=== PATIENT | male | born 1935 | race Caucasian/White ===

== ENCOUNTER → 2022-12-14 13:27 | Outpatient (CLI) | payer MEDICARE, OTHER, SELFPAY ==
--- NOTE | 2022-12-14 14:01 | CT_ITS ---
FINAL REPORT TECHNIQUE: Postcontrast axial images through the abdomen and pelvis were performed. This study was performed with techniques to keep radiation doses as low as reasonably achievable, (ALARA). Individualized dose reduction techniques using automated exposure control or adjustment of mA and/or kV according to the patient's size were employed. CLINICAL HISTORY: CONSTIPATION,UPPER ABD PAIN,DYSURIA FINDINGS: Abdomen: There is mild scarring in the lung bases. The liver is normal in size and attenuation. The spleen is unremarkable. The adrenals are normal. Bilateral renal cysts are identified. There is mild bilateral hydronephrosis. There is a less than 3 mm nonobstructing stone in the lower pole of the left kidney. Stranding is seen adjacent to the pancreatic head of uncertain significance but worrisome for focal acute pancreatitis. The aorta is normal in caliber. No free fluid or adenopathy is identified. No findings for mechanical bowel obstruction are identified. There are small bilateral inguinal hernias containing fat. Pelvis: The appendix is not identified. There is mild bladder wall thickening, likely inflammatory. No free fluid, free air, abscess or adenopathy is identified. IMPRESSION: Stranding adjacent to the pancreatic head of uncertain significance but worrisome for focal acute pancreatitis. Mild bilateral hydronephrosis without ureteral stone. Nonobstructing left renal stone. Reviewed, Interpreted and Dictated by Isrrael Meyer III, MD Transcribed by Kylah Castellon Authenticated and [facility]
[2022-12-14 14:19] LABS: Blood Urea Nitrogen 15 mg/dl (9-20); Estimated Glomerular Filt Rate 63 ml/min (>60); GFR (African American) 77 ML/MIN (>60)
== END ==
PROVIDERS: PCP Family Medicine; Visit Provider Nurse Practitioner Family
DX: R10.10 Upper abdominal pain, unspecified (principal); R30.0 Dysuria; K59.00 Constipation, unspecified
CPT/HCPCS: 36415; 74177; 82565; 84520; Q9967

== ENCOUNTER 2024-07-05 17:29 | Emergency (ER) | payer MEDICARE, OTHER, SELFPAY ==
[2024-07-05] VITALS (9 sets, daily range): BP systolic 147–188; BP diastolic 79–110; PULSE 86–119; RESP 16–20; TEMP 36.7; O2SAT 95–99; BMI 27.3
--- NOTE | 2024-07-05 17:33 | PC.NURSE ---
Glucose 120 at 1730
--- NOTE | 2024-07-05 17:34 | ECG_ITS ---
APPROVED REPORT Exam: Resting ECG HR:96 bpm ECG Measurements Heart Rate 96 AXES OH 192 P 58 QRSd 84 QRS -26 QT 328 T 52 QTc 382 Conclusion SINUS RHYTHM BORDERLINE LEFT AXIS DEVIATION [QRS AXIS < -20] MODERATE VOLTAGE CRITERIA FOR LVH, CONSIDER NORMAL VARIANT [MEETS CRITERIA IN ONE OF: R(aVL), S(V1), R(V5), R(V5/V6)+S(V1)] BORDERLINE ECG UNCONFIRMED REPORT Electronically signed by : JEFERSON CLARK, 07/06/2024 06:49:46
--- NOTE | 2024-07-05 17:59 | CT_ITS ---
PROCEDURE INFORMATION: Exam: CTA Head With Contrast, Arteriography Exam date and time: 07/05/2024 6:25 PM Age: 88 years old Clinical indication: Other: Confusion; Additional info: Confustion TECHNIQUE: Imaging protocol: Computed tomographic angiography of the head with contrast. Exam focused on the arteries. 3D rendering (Not supervised by radiologist): MIP and/or 3D reconstructed images were created by the technologist. Radiation optimization: All CT scans at this facility use at least one of these dose optimization techniques: automated exposure control; mA and/or kV adjustment per patient size (includes targeted exams where dose is matched to clinical indication); or iterative reconstruction. Contrast material: ISOVUE; Contrast volume: 80 ml; Contrast route: INTRAVENOUS (IV); COMPARISON: CT ANGIO HEAD 07/05/2024 6:25 PM FINDINGS: ANTERIOR CIRCULATION: Right internal carotid artery: Intracranial segment is patent with no significant stenosis. No aneurysm. Right middle cerebral artery: No occlusion or significant stenosis. No aneurysm. Right anterior cerebral artery: No occlusion or significant stenosis. No aneurysm. Left internal carotid artery: Intracranial segment is patent with no significant stenosis. No aneurysm. Left middle cerebral artery: No occlusion or significant stenosis. No aneurysm. Left anterior cerebral artery: No occlusion or significant stenosis. No aneurysm. POSTERIOR CIRCULATION: Right vertebral artery: No occlusion or significant stenosis. No aneurysm. Left vertebral artery: No occlusion or significant stenosis. No aneurysm. Basilar artery: No occlusion or significant stenosis. No aneurysm. Right posterior cerebral artery: No occlusion or significant stenosis. No aneurysm. Left posterior cerebral artery: No occlusion or significant stenosis. No aneurysm. Brain: No definite mass, mass effect, or midline shift. Cerebral ventricles: No ventriculomegaly. Bones/joints: Unremarkable. No acute fracture. Soft tissues: Unremarkable. IMPRESSION: No large vessel stenosis or occlusion.
--- NOTE | 2024-07-05 17:59 | CT_ITS ---
PROCEDURE INFORMATION: Exam: CTA Neck With Contrast Exam date and time: 07/05/2024 6:25 PM Age: 88 years old Clinical indication: Other: Confusion; Additional info: Confustion TECHNIQUE: Imaging protocol: Computed tomographic angiography of the neck with contrast. Exam focused on the cervical segments of the vasculature. 3D rendering (Not supervised by radiologist): MIP and/or 3D reconstructed images were created by the technologist. Radiation optimization: All CT scans at this facility use at least one of these dose optimization techniques: automated exposure control; mA and/or kV adjustment per patient size (includes targeted exams where dose is matched to clinical indication); or iterative reconstruction. Contrast material: ISOVUE; Contrast volume: 80 ml; Contrast route: INTRAVENOUS (IV); COMPARISON: CT ANGIO HEAD 07/05/2024 6:25 PM FINDINGS: Right common carotid artery: No stenosis. No dissection or occlusion. Right internal carotid artery: No stenosis of the extracranial segment. No dissection or occlusion. Right external carotid artery: No occlusion or stenosis of the origin. Left common carotid artery: No stenosis. No dissection or occlusion. Left internal carotid artery: No stenosis of the extracranial segment. No dissection or occlusion. Left external carotid artery: No occlusion or stenosis of the origin. Right vertebral artery: No stenosis. No dissection or occlusion. Left vertebral artery: No stenosis. No dissection or occlusion. Paranasal sinuses: Opacification of the right maxillary sinus. Thyroid: 2.6 cm right lobe dominant thyroid nodule. Thyroid sonogram with possible biopsy recommended. Soft tissues: Normal. No significant soft tissue swelling. Bones/joints: No acute fracture. IMPRESSION: 1. 2.6 cm right lobe dominant thyroid nodule. Thyroid sonogram with possible biopsy recommended. 2. Opacification of the right maxillary sinus. 3. No acute large vessel occlusion identified. COMMENTS: Consistent with the [employer]'s Incidental Findings Committee white paper (J Am Estella Radiol 2015): In patients aged 35 years and older with an incidental thyroid nodule equal to or greater than 1.[address], MRI or extrathyroidal US, further evaluation with dedicated thyroid US is recommended for patients with normal life expectancy and without comorbidities. For smaller nodules without suspicious features, no further evaluation or follow up is recommended. REFERENCES: NASCET CRITERIA. The degree of stenosis in the cervical segment of the internal carotid artery is based on NASCET criteria. Normal is no stenosis. Mild is less than 50% stenosis. Moderate is 50-69% stenosis. Severe is 70% to 99% stenosis. Total occlusion is no detectable patent lumen.
--- NOTE | 2024-07-05 18:00 | XR_ITS ---
PROCEDURE INFORMATION: Exam: XR Chest Exam date and time: 07/05/2024 6:30 PM Age: 88 years old Clinical indication: Shortness of breath; Additional info: SOA TECHNIQUE: Imaging protocol: Radiologic exam of the chest. Views: 1 view. COMPARISON: CT ANGIO NECK 07/05/2024 6:25 PM FINDINGS: Lungs: Unremarkable. No consolidation. Pleural spaces: Unremarkable. No pleural effusion. No pneumothorax. Heart/Mediastinum: Unremarkable. No cardiomegaly. Bones/joints: Unremarkable. IMPRESSION: No acute findings.
[2024-07-05] MEDS: ONDANSETRON 4MG/2ML VIAL 4 MG IV (18:06)
--- NOTE | 2024-07-05 18:10 | CT_ITS ---
PROCEDURE INFORMATION: Exam: CT Head Without Contrast Exam date and time: 07/05/2024 6:22 PM Age: 88 years old Clinical indication: Other: Confusion TECHNIQUE: Imaging protocol: Computed tomography of the head without contrast. Radiation optimization: All CT scans at this facility use at least one of these dose optimization techniques: automated exposure control; mA and/or kV adjustment per patient size (includes targeted exams where dose is matched to clinical indication); or iterative reconstruction. COMPARISON: No relevant prior studies available. FINDINGS: Brain: Periventricular and subcortical small vessel ischemic changes appear chronic. Mild atrophy associated. No acute hemorrhage, mass effect, midline shift, or extra-axial fluid collection. Cerebral ventricles: No ventriculomegaly. Paranasal sinuses: Right maxillary sinus opacification. Mastoid air cells: Visualized mastoid air cells are well aerated. Bones: Unremarkable. No acute fracture. Soft tissues: Unremarkable. IMPRESSION: 1. No acute intracranial abnormality identified. 2. Chronic right maxillary sinusitis.
--- NOTE | 2024-07-05 18:16 | HMH.EDGENADL ---
Discharge Plan Disposition Patient Disposition: Xfer Short-Term Hosp Referrals Follow up/Referrals: Provider,Referral, [Referring] - See instructions Clinical Impressions Clinical Impression: Acute alteration in mental status Stand Alone Forms Stand Alone Forms: Transfer Record - ED Print Language Print Language: Swedish Discharge ED Provider: Dav Caraballo General Adult HPI <Dav Caraballo MD - Last Filed: 07/05/24 23:30> General Chief complaint: Neuro Symptoms/Deficit Stated complaint: CVA Symptoms Time Seen by Provider: 07/05/24 17:32 Mode of Arrival: Ambulatory Source of Information: Patient Limitations: No Limitations Description of Symptoms (Recalled from ER Triage Doc. by RN): pt presents to ED with c/o confusion. family states that pt was working on getting the generator running, they left the generator running to charge battery. pt forgot that this was going on. family concerned for stroke due to confusion. History of Present Illness HPI narrative: Patient is a 88-year-old past medical history of hypertension, BPH, presenting for confusion. Last known normal per family was around 2 PM today prior to him going outside and working on the generator. According to family he went into the bathroom and felt like he blacked out . They did not hear him at the floor and he is not complaining of pain anywhere. Patient said that he has not been remembering things since this occurred. He has had no sensation or motor issues and still able to walk with a strong steady gait. They were concerned for a stroke and brought him here. He is unsure if he took his blood pressure medications this morning and has had no fevers, chills, chest pain, shortness of breath, abdominal pain nausea or vomiting. According to family this is never happened before. Related Data Allergies Allergy/AdvReac Type Severity Reaction Status Date / Time Sulfa (Sulfonamide Allergy Unknown Verified 07/05/24 18:06 Antibiotics) (SULFA (SULFONAMIDE ANTIBIOTICS)) PFSH <Dav Caraballo MD - Last Filed: 07/05/24 23:30> FORMERLY [facility] Disclaimer: The information contained in this section may have been updated after the patient was seen, as this information can be updated by other users. Social History (Updated 07/05/24 @ 21:05 by Stephen Gilman ([facility]), PHARMACIST HELPER) Smoking Status: Never smoker alcohol intake: never current occupational status: retired Travel in the last 8 weeks: None Have you lived/traveled outside [place] in past 30 days?: No Contact w/someone who lives/traveled outside US past 30 days?: No Exposure to someone with infectious disease in past 14 days?: No Do you have a fever (greater than 100.4 F or 38 C)?: No Have you tested positive for COVID-19: No Exposed to someone with COVID-19 in past 14 days?: No Do you have a sore throat?: No Do you have a cough?: No Do you have any weakness?: No Do you have any diarrhea?: No Are you experiencing any unusual bleeding?: No Do you have any muscle aches/pain?: No Do you have any abdominal pain?: No Are you experiencing loss of taste or smell?: No <Dav Caraballo MD - Last Filed: 07/05/24 23:30> ROS Obtained: Yes All systems reviewed & no additional complaints except as documented <Stephen Gilman ([facility]), PHARMACIST HELPER - Last Filed: 07/05/24 21:05> ROS Obtained: Yes Systems reviewed as appropriate & no additional complaints except as documented Physical Exam <Dav Caraballo MD - Last Filed: 07/05/24 23:30> General General appearance: alert and in no apparent distress Eye Eye exam: Present normal appearance ENT ENT exam: Present normal exam Chest Chest inspection: Present symmetric chest wall rise Respiratory Respiratory exam: Present normal lung sounds bilaterally; Absent respiratory distress Cardiovascular Cardiovascular exam: Present regular rate Abdominal Exam Abdominal exam: Present soft; Absent tenderness, guarding or rebound Extremities Exam Extremities exam: Present full ROM; Absent tenderness Neurological Exam Neurological exam: Present alert, CN II-XII intact, normal gait and other (Finger-nose and [id number] normal, able to name objects such as glove and pen, no aphasia, cranial nerves intact, 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 [place]omo Inquiry Pt receiving controlled substance: No Vital Signs: 07/05/24 17:30 07/05/24 18:00 07/05/24 18:45 Temperature 98.1 F Temperature Source Oral Pulse Rate 119 H 91 H Pulse Rate [Left Radial] 95 H Respiratory Rate 16 Blood Pressure 179/107 H 158/85 H Blood Pressure [Right Arm] 188/110 H Blood Pressure Mean Blood Pressure Mean [Right Arm] 136 02 Sat by Pulse Oximetry 96 98 95 Oxygen Delivery Method Room Air Room Air 07/05/24 19:01 07/05/24 19:30 07/05/24 20:00 Temperature Temperature Source Pulse Rate 94 H 86 92 H Pulse Rate [Left Radial] Respiratory Rate Blood Pressure 154/96 H 147/79 H 153/81 H Blood Pressure [Right Arm] Blood Pressure Mean 118 101 96 Blood Pressure Mean [Right Arm] 02 Sat by Pulse Oximetry 96 97 96 Oxygen Delivery Method 07/05/24 21:31 07/05/24 21:59 07/05/24 22:01 Temperature 98.0 F Temperature Source Oral Pulse Rate 98 H 96 H 95 H Pulse Rate [Left Radial] Respiratory Rate 20 Blood Pressure 154/87 H 154/87 H 164/83 H Blood Pressure [Right Arm] Blood Pressure Mean 108 Blood Pressure Mean [Right Arm] 02 Sat by Pulse Oximetry 98 99 Oxygen Delivery Method Room Air Lab Data Lab Results 07/05/24 17:30: WBC 7.8, RBC 4.67, Hgb 14.4, Hct 42.9, MCV 91.9, MCH 30.8, MCHC 33.6, RDW 14.0, Plt Count 163, MPV 11.6 H, Neut % (Auto) 43.2, Lymph % (Auto) 46.6, [place] % (Auto) 7.4, Eos % (Auto) 1.8, Baso % (Auto) 0.4, Neut # (Auto) 3.4, Lymph # (Auto) 3.6, [place] # (Auto) 0.6, Eos # (Auto) 0.1, Baso # (Auto) 0.0, Sodium 141, Potassium 4.4, Chloride 106, Carbon Dioxide 28, Anion Gap 11.4, BUN 28 H, Creatinine 1.20, Estimated Creat Clear 49, Estimated GFR 57 L, Est GFR ( Amer) 69, Glucose 116 H, Lactate 0.6 L, Calcium 9.3, Magnesium 1.7, Total Bilirubin 0.5, AST 50, ALT 29, Alkaline Phosphatase 40, Troponin I < 0.01, Total Protein 7.0, Albumin 4.2, Globulin 2.8, Albumin/Globulin Ratio 1.5, HIV Ag/Ab Combo Qual Negative 07/05/24 18:53: Urine Color Yellow, Urine Appearance Clear, Urine pH 6.0, Ur Specific [place] 1.025, Urine Protein Negative, Urine Glucose (UA) Negative, Urine Ketones Negative, Urine Blood Negative, Urine Nitrate Negative, Urine Bilirubin Negative, Urine Urobilinogen 0.2, Ur Leukocyte Esterase Negative, Urine RBC None, Urine WBC Occasional, Ur Squamous Epith Cells Occasional, Urine Bacteria None 07/05/24 17:30 07/05/24 17:30 Orders (Tests/Meds): ED MEDICATIONS Discontinued Medications Generic Name Dose Route Start Last Admin Trade Name Magdalena PRN Reason Stop Dose Admin Iopamidol 80 ml 07/05/24 18:22 07/05/24 18:25 Iopamidol-370 (76%);100ml Bottle IV 07/05/24 18:23 80 ml ONCE ONE Administration Ondansetron HCl 4 mg 07/05/24 18:03 07/05/24 18:06 Ondansetron 4mg/2ml Vial IV 07/05/24 18:04 4 mg ONCE ONE Administration Sodium Chloride 50 ml 07/05/24 18:22 07/05/24 18:25 0.9 % Sodium Chloride 50 Ml Vial IV 07/05/24 18:23 50 ml ONCE ONE Administration Sodium Chloride 10 ml 07/05/24 18:22 07/05/24 18:25 Sodium Chloride 0.9% 10ml Syr (Rad Only) IV 07/05/24 18:23 10 ml ONCE ONE Administration ORDERS Category Date Time Status CT angio head Stat Cat Scan 07/05/24 17:[address] angio neck Stat Cat Scan 07/05/24 17:[address] head/brain wo con Stat Cat Scan 07/05/24 18:10 Completed XR chest portable Stat Exams 07/05/24 18:00 Completed CBC w/Auto Diff [Complete Blood Count Auto Diff] Stat Lab 07/05/24 17:30 Completed CMP [Comprehensive Metabolic Panel] Stat Lab 07/05/24 17:30 Completed HIV Combo Stat Lab 07/05/24 17:30 Completed Hep C Ab with Reflex to RNA Stat Lab 07/05/24 17:30 Received Lactic Acid Stat Lab 07/05/24 17:30 Completed Magnesium Stat Lab 07/05/24 17:30 Completed Trop I [Troponin I] Stat Lab 07/05/24 17:30 Completed UA [Urinalysis and Microscopic] Stat Lab 07/05/24 18:53 Completed Blood Culture Stat Micro 07/05/24 18:18 Received Medical Decision Narrative: In summary, this 88-year-old male presents to the emergency department today with confusion. On initial evaluation patient is hemodynamically stable alert and in no acute distress. Patient has a NIH of 1 for inability to name month but is otherwise intact. Patient is hypertensive to the 200s and it is unclear if he took his antihypertensives this morning. Patient has had no fevers or chills. Differential diagnosis includes but is not limited to hypertensive emergency, intracranial hemorrhage, electrolyte abnormality, infection. Based on these concerns, I ordered []. ECG personally interpreted demonstrates []. Patient received [] for treatment. Labs personally reviewed demonstrate []. XR personally interpreted demonstrates []. CT imaging personally interpreted demonstrate []. I had an interactive discussion with []. On reassessment []. Patient's prescriptions were reviewed and []. Admission as considered and []. Of note, social determinants of health include []. <Stephen Gilman ([facility]), PHARMACIST HELPER - Last Filed: 07/05/24 21:05> Vital Signs: 07/05/24 17:30 07/05/24 18:00 07/05/24 18:45 Temperature 98.1 F Temperature Source Oral Pulse Rate 119 H 91 H Pulse Rate [Left Radial] 95 H Respiratory Rate 16 Blood Pressure 179/107 H 158/85 H Blood Pressure [Right Arm] 188/110 H Blood Pressure Mean Blood Pressure Mean [Right Arm] 136 02 Sat by Pulse Oximetry 96 98 95 Oxygen Delivery Method Room Air Room Air 07/05/24 19:01 07/05/24 19:30 07/05/24 20:00 Temperature Temperature Source Pulse Rate 94 H 86 92 H Pulse Rate [Left Radial] Respiratory Rate Blood Pressure 154/96 H 147/79 H 153/81 H Blood Pressure [Right Arm] Blood Pressure Mean 118 101 96 Blood Pressure Mean [Right Arm] 02 Sat by Pulse Oximetry 96 97 96 Oxygen Delivery Method 07/05/24 21:31 07/05/24 21:59 07/05/24 22:01 Temperature 98.0 F Temperature Source Oral Pulse Rate 98 H 96 H 95 H Pulse Rate [Left Radial] Respiratory Rate 20 Blood Pressure 154/87 H 154/87 H 164/83 H Blood Pressure [Right Arm] Blood Pressure Mean 108 Blood Pressure Mean [Right Arm] 02 Sat by Pulse Oximetry 98 99 Oxygen Delivery Method Room Air Lab Data Lab Results 07/05/24 17:30: WBC 7.8, RBC 4.67, Hgb 14.4, Hct 42.9, MCV 91.9, MCH 30.8, MCHC 33.6, RDW 14.0, Plt Count 163, MPV 11.6 H, Neut % (Auto) 43.2, Lymph % (Auto) 46.6, [place] % (Auto) 7.4, Eos % (Auto) 1.8, Baso % (Auto) 0.4, Neut # (Auto) 3.4, Lymph # (Auto) 3.6, [place] # (Auto) 0.6, Eos # (Auto) 0.1, Baso # (Auto) 0.0, Sodium 141, Potassium 4.4, Chloride 106, Carbon Dioxide 28, Anion Gap 11.4, BUN 28 H, Creatinine 1.20, Estimated Creat Clear 49, Estimated GFR 57 L, Est GFR ( Amer) 69, Glucose 116 H, Lactate 0.6 L, Calcium 9.3, Magnesium 1.7, Total Bilirubin 0.5, AST 50, ALT 29, Alkaline Phosphatase 40, Troponin I < 0.01, Total Protein 7.0, Albumin 4.2, Globulin 2.8, Albumin/Globulin Ratio 1.5, HIV Ag/Ab Combo Qual Negative 07/05/24 18:53: Urine Color Yellow, Urine Appearance Clear, Urine pH 6.0, Ur Specific [place] 1.025, Urine Protein Negative, Urine Glucose (UA) Negative, Urine Ketones Negative, Urine Blood Negative, Urine Nitrate Negative, Urine Bilirubin Negative, Urine Urobilinogen 0.2, Ur Leukocyte Esterase Negative, Urine RBC None, Urine WBC Occasional, Ur Squamous Epith Cells Occasional, Urine Bacteria None Orders (Tests/Meds): ED MEDICATIONS Discontinued Medications Generic Name Dose Route Start Last Admin Trade Name Magdalena PRN Reason Stop Dose Admin Iopamidol 80 ml 07/05/24 18:22 07/05/24 18:25 Iopamidol-370 (76%);100ml Bottle IV 07/05/24 18:23 80 ml ONCE ONE Administration Ondansetron HCl 4 mg 07/05/24 18:03 07/05/24 18:06 Ondansetron 4mg/2ml Vial IV 07/05/24 18:04 4 mg ONCE ONE Administration Sodium Chloride 50 ml 07/05/24 18:22 07/05/24 18:25 0.9 % Sodium Chloride 50 Ml Vial IV 07/05/24 18:23 50 ml ONCE ONE Administration Sodium Chloride 10 ml 07/05/24 18:22 07/05/24 18:25 Sodium Chloride 0.9% 10ml Syr (Rad Only) IV 07/05/24 18:23 10 ml ONCE ONE Administration ORDERS Category Date Time Status CT angio head Stat Cat Scan 07/05/24 17:[address] angio neck Stat Cat Scan 07/05/24 17:[address] head/brain wo con Stat Cat Scan 07/05/24 18:10 Completed XR chest portable Stat Exams 07/05/24 18:00 Completed CBC w/Auto Diff [Complete Blood Count Auto Diff] Stat Lab 07/05/24 17:30 Completed CMP [Comprehensive Metabolic Panel] Stat Lab 07/05/24 17:30 Completed HIV Combo Stat Lab 07/05/24 17:30 Completed Hep C Ab with Reflex to RNA Stat Lab 07/05/24 17:30 Received Lactic Acid Stat Lab 07/05/24 17:30 Completed Magnesium Stat Lab 07/05/24 17:30 Completed Trop I [Troponin I] Stat Lab 07/05/24 17:30 Completed UA [Urinalysis and Microscopic] Stat Lab 07/05/24 18:53 Completed Blood Culture Stat Micro 07/05/24 18:18 Received Medical Decision Narrative: In summary, this 88-year-old male presents to the emergency department today with confusion. On initial evaluation patient is hemodynamically stable alert and in no acute distress. Patient has a NIH of 1 for inability to name month but is otherwise intact. Patient is hypertensive to the 200s and it is unclear if he took his antihypertensives this morning. Patient has had no fevers or chills. Differential diagnosis includes but is not limited to hypertensive emergency, intracranial hemorrhage, electrolyte abnormality, infection. Based on these concerns, I ordered labs, CT head and neck with contrast, UA. ECG personally interpreted demonstrates sinus rhythm. Patient received labs,ct for treatment. Labs personally reviewed demonstrate normal. XR personally interpreted demonstrates No acute findings. CT imaging personally interpreted demonstrate :No large vessel stenosis or occlusion. . I had an interactive discussion with Dr. Pemberton [facility] accepted patient to internal ER. On reassessment still confused with altered mental status. Admission as considered and decision was made to transfer due to inability to do an MRI on weekends. Critical Care <Stephen Gilman ([facility]), PHARMACIST HELPER - Last Filed: 07/05/24 21:05> Critical Care Time Critical Care Time: No
[2024-07-05 18:23] LABS: Basophils % 0.4 % (0.1-2.0); Eosinophils # 0.1 K/mm3 (0.0-0.4); Eosinophils % 1.8 % (0.1-12.0); Hematocrit 42.9 % (42.0-52.0); Hemoglobin 14.4 g/dL (14.1-18.0); Lymphocytes # 3.6 K/mm3 (0.7-4.5); Lymphocytes % 46.6 % (10-50); Mean Corpuscular HGB Conc 33.6 g/dL (31.8-35.4); Mean Corpuscular Hemoglobin 30.8 pg (27.0-31.2); Mean Corpuscular Volume 91.9 fl (80-94); Mean Platelet Volume 11.6 fl (7.4-10.4); Monocytes # 0.6 K/mm3 (0.1-1.0); Monocytes % 7.4 % (1.7-9.3); Neutrophils # 3.4 K/mm3 (1.8-7.8); Neutrophils % 43.2 % (37.0-80.0); Platelet Count 163 K/mm3 (142-424); Red Blood Count 4.67 M/mm3 (4.60-6.20); White Blood Count 7.8 K/mm3 (4.8-10.8)
[2024-07-05 18:25] LABS: Albumin Level 4.2 g/dl (3.5-5.0); Chloride 106 mmol/L (98-107); Potassium 4.4 mmoL/L (3.5-5.1); Sodium 141 mmol/L (136-145)
[2024-07-05] MEDS: 0.9 % SODIUM CHLORIDE 50 ML VIAL IV (18:25)
[2024-07-05] MEDS: IOPAMIDOL-370 (76%);100ML BOTTLE 80 ML IV (18:25)
[2024-07-05] MEDS: SODIUM CHLORIDE 0.9% 10ML SYR (RAD ONLY) 10 ML IV (18:25)
[2024-07-05 18:28] LABS: Alanine Aminotransferase 29 U/L (12-78); Albumin/Globulin Ratio 1.5 (1.1-1.8); Alkaline Phosphatase 40 U/L (38-126); Anion Gap 11.4 mEq/L (5-15); Aspartate Amino Transferase 50 U/L (17-59); Bilirubin,Total 0.5 mg/dl (0.2-1.3); Blood Urea Nitrogen 28 mg/dl (9-20); Calcium 9.3 mg/dl (8.4-10.2); Carbon Dioxide 28 mmol/L (22.0-30.0); Creatinine Clearance Estimated 49 mL/min (50-200); Estimated Glomerular Filt Rate 57 ml/min (>60); GFR (African American) 69 ML/MIN (>60); Globulin 2.8 g/dL (1.3-3.2); Glucose 116 mg/dl (74-100); Magnesium 1.7 mg/dl (1.6-2.3)
[2024-07-05 18:29] LABS: Lactic Acid 0.6 mmol/L (0.7-2.1)
[2024-07-05 18:41] LABS: Troponin I < 0.01 ng/ml (0.00-0.034)
[2024-07-05 18:58] LABS: Microscopic, Urine URINE MICROSCOPIC (MICROSCOPIC)
[2024-07-05 19:00] LABS: Appearance,Urine CLEAR (Clear); Bilirubin,Urine Negative (Negative); Blood, Urine Negative (Negative); Color,Urine YELLOW (Yellow); Glucose,Urine (UA) Negative (Negative); Ketones,Urine Negative (Negative); Leukocyte Esterase,Urine Negative (Negative); Nitrate,Urine Negative (Negative); Protein,Urine Negative (Negative); Specific Gravity, Urine 1.025 (1.005-1.030); Urobilinogen,Urine 0.2 EU/dl (0.2)
[2024-07-05 19:12] LABS: Squamous Epithelial Cell,Urine Occasional #/hpf (0-5); WBC,Urine Occasional #/hpf (0-3)
[2024-07-05 19:50] LABS: HIV Combo NEGATIVE (Negative)
--- NOTE | 2024-07-05 20:25 | PC.NURSE ---
[facility] notified of need for transfer
--- NOTE | 2024-07-05 22:12 | PC.NURSE ---
pt voiced his concerns about going to . Dr. Caraballo at bedside s/w pt, family, and allergy and immunology specialist.
[2024-07-09 05:10] LABS: HCV Ab Non Reactive (Non Reactive)
== END 2024-07-05 22:38 | disposition short-term general hospital (02) ==
PROVIDERS: Nurse Practitioner Family; Emergency Provider Student in an Organized Health Care Education/Training Program; PCP Family Medicine
DX: R41.82 Altered mental status, unspecified (principal)
CPT/HCPCS: 70450; 70496; 70498; 71045; 80053; 81001; 83605; 83735; 84484; 85025; 86803; 87040; 87389; 93005; 96374; 99285; J2405; Q9967

== ENCOUNTER 2024-07-17 15:23 | Outpatient (CLI) | payer MEDICARE, OTHER, SELFPAY ==
--- NOTE | 2024-07-17 15:27 | MR_ITS ---
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 There is moderate generalized atrophy with mild chronic microvascular ischemic changes. No mass, hemorrhage or edema is seen. Ventricles are normal in size for degree of atrophy. Major vascular flow voids are intact. There is right maxillary sinusitis. Following contrast administration, no mass or abnormal enhancement is seen. IMPRESSION: No acute infarct or mass. Moderate generalized atrophy with mild chronic microvascular ischemia. Reviewed, Interpreted and Dictated by Anabel Stockton MD Transcribed by Kylah Castellon Authenticated and [facility]
[2024-07-17] MEDS: GADOTERIDOL INJ 20ML SYRINGE 16 ML IV (16:35)
[2024-07-17] MEDS: SODIUM CHLORIDE 0.9% 10ML SYR (RAD ONLY) 10 ML IV (16:35)
== END 2024-07-17 23:59 | disposition home or self-care (01) ==
LOC: RAD 15:24
PROVIDERS: PCP Family Medicine; Visit Provider Nurse Practitioner
DX: R41.3 Other amnesia (principal); G45.9 Transient cerebral ischemic attack, unspecified
CPT/HCPCS: 70553; A9576